=== PATIENT | female | born 1940 | race Caucasian/White ===

== ENCOUNTER 2017-01-11 06:58 | Day surgery (SDC) | payer OTHER ==
[2017-01-10 11:02] VITALS: BMI 23.8
[2017-01-11] MEDS ORDERED: PROPOFOL 20 ML ONE ×3 (07:58)
[2017-01-11] MEDS ORDERED: LIDOCAINE HCL 2% (20ML MULTI-DOSE VIAL) NR ONE (07:58)
[2017-01-11 09:11] VITALS: TEMP 97.7
[2017-01-11 15:30] VITALS: BP 154/61; PULSE 49
--- NOTE | 2017-01-14 10:52 | PATH ---
Surgical Pathology Report Patient Name: KAIN RUANO [facility]. Rec. #: [id number] /Age/Gender: 1940 (Age: 76) / F Account: [id number] Location: [facility]-ENDOSCOPY Taken: 01/11/2017 Received: 01/11/2017 Reported: 01/14/2017 Physicians: Nivia Ya M.D. Specimen(s) Received POLYP RECTO/SIGMOID COLON Clinical History Screening Rectal sigmoid polyps; diverticulosis; tortuous colon Final Diagnosis COLON, RECTOSIGMOID, BIOPSY: HYPERPLASTIC POLYP. Electronically Signed Dat Anglin M.D. Gross Description Received in formalin, labeled "biopsy rectosigmoid polyp polyp" are four fragments of soft tissue measuring 0.2-0.3 cm. in greatest dimension. The specimen is submitted in toto in one cassette. AF/01/11/2017 final/01/11/2017
== END 2017-01-11 11:00 | disposition home or self-care (01) ==
LOC: JASU-ENDO 06:58
PROVIDERS: ATTEND Internal Medicine Gastroenterology
PROC: 0DBP8ZX Excision of Rectum, Via Natural or Artificial Opening Endoscopic, Diagnostic (ICD-10-PCS; principal; 2017-01-11 08:00)
DX: Z86.010 Personal history of colon polyps (principal); K62.1 Rectal polyp; K64.8 Other hemorrhoids; K57.30 Diverticulosis of large intestine without perforation or abscess without bleeding
CPT/HCPCS: 88305-TC

== ENCOUNTER 2022-06-01 04:08 | Day surgery (SDC) | payer OTHER ==
[2022-05-31 15:37] VITALS: BMI 22.1
[~2022-06-01 04:08] MED LIST: DEXAMETHASONE SOD PHOSPHATE 10 MG/1 ML VIAL IVPUSH ONE; IOHEXOL 180 MG/1 ML ML IJ ONE; LIDOCAINE 1% P/F 10 MG/ML VIAL PNB ONE
[2022-06-01 10:55] VITALS: RESP 18
[2022-06-01] MEDS ORDERED: DEXAMETHASONE SOD PHOSPHATE 10 MG/1 ML VIAL IVPUSH ONE (13:13)
[2022-06-01] MEDS ORDERED: IOHEXOL 180 MG/1 ML ML IJ ONE (13:13)
[2022-06-01] MEDS ORDERED: LIDOCAINE 1% P/F 10 MG/ML VIAL PNB ONE (13:13)
[2022-06-01 14:49] VITALS: BP 125/67; PULSE 73; TEMP 97.8
== END 2022-06-01 14:00 | disposition home or self-care (01) ==
LOC: JASU-SURG 04:08
PROVIDERS: ATTEND Pain Medicine Pain Medicine
PROC: 3E0R3BZ Introduction of Anesthetic Agent into Spinal Canal, Percutaneous Approach (ICD-10-PCS; 2022-06-01)
PROC: 3E0R33Z Introduction of Anti-inflammatory into Spinal Canal, Percutaneous Approach (ICD-10-PCS; principal; 2022-06-01 12:00)
DX: M48.061 Spinal stenosis, lumbar region without neurogenic claudication (principal); M54.16 Radiculopathy, lumbar region
CPT/HCPCS: 76000-TC-FY; J1100

== ENCOUNTER 2022-06-04 14:52 | Emergency (ER) | payer OTHER ==
[2022-06-04 15:11] VITALS: BP 115/67; PULSE 86; RESP 18; TEMP 98.1; BMI 22.1
[2022-06-04] MEDS ORDERED: KETOROLAC TROMETHAMINE 15 MG/ML VIAL IM ONE (16:51)
[2022-06-04] MEDS ORDERED: LIDOCAINE 5% TOPICAL PATCH TP ONE (16:52)
[2022-06-04] MEDS ORDERED: KETOROLAC TROMETHAMINE 15 MG/ML VIAL ONE (16:56)
[2022-06-05] MEDS ORDERED: LIDOCAINE PATCH REMOVAL MC SCH (05:00)
== END 2022-06-04 17:53 | disposition home or self-care (01) ==
LOC: JER 14:52
PROC: 3E023GC Introduction of Other Therapeutic Substance into Muscle, Percutaneous Approach (ICD-10-PCS; principal; 2022-06-04)
DX: M54.50 Low back pain, unspecified (principal)
CPT/HCPCS: 99284-25